=== PATIENT | female | born 1980 | race Hispanic/Latino ===

== ENCOUNTER 2022-01-06 10:42 | Emergency (ER) | payer BC, OTHER ==
[~2022-01-06] VITALS: Ht 152.4 cm; Wt 83.0 kg
[2022-01-06] MEDS ORDERED: KETOROLAC TROMETHAMINE 30 MG/ML VIAL IV STA (11:06)
[2022-01-06] MEDS ORDERED: SODIUM CHLORIDE 0.9% 1000ML 1,000 ML IV ONE (11:15)
[2022-01-06] MEDS ORDERED: ONDANSETRON HCL INJ 2MG/ML 2ML 2 MG/ML VIAL IV PRN (11:15)
[2022-01-06 11:31] LABS: BASOPHILS % 0.5 % (0.0-1.0); EOSINOPHILS # (AUTO) 0.1 (0.0-0.4); EOSINOPHILS % 2.3 % (0.0-6.0); HEMOGLOBIN 11.1 g/dL (12.0-16.0); LYMPHOCYTES # (AUTO) 2.2 (1.0-3.2); LYMPHOCYTES % 40.1 % (18.0-39.1); MEAN CORPUSCULAR VOLUME 80.1 fL (81-99); MONOCYTES # (AUTO) 0.5 (0.2-0.8); MONOCYTES % 8.1 % (4.4-11.3); NEUTROPHILS # (AUTO) 2.7 (2.1-6.9); NEUTROPHILS % 48.3 % (38.7-80.0); PLATELET COUNT 267 x10e3/uL (140-360); RED BLOOD COUNT 4.62 x10e6/uL (3.6-5.1); RED CELL DISTRIBUTION WIDTH 15.9 % (11.7-14.4)
[2022-01-06 11:49] LABS: CLARITY,URINE CLEAR (CLEAR); COLOR,URINE YELLOW (YELLOW); KETONES,URINE NEGATIVE (NEGATIVE); LEUKOCYTE ESTERASE ,URINE NEGATIVE (NEGATIVE); NITRITE,URINE NEGATIVE (NEGATIVE); PROTEIN,URINE DIPSTICK NEGATIVE (NEGATIVE); URINE UROBILINOGEN 0.2 mg/dL (0.2 - 1)
[2022-01-06 11:52] LABS: ALBUMIN 3.2 g/dL (3.5-5.0); ANION GAP 14.5 mmol/L (8-16); CALCIUM 8.8 mg/dL (8.4-10.2); CREATININE, SERUM 0.79 mg/dL (0.57-1.11); LIPASE 41 U/L (8-78); POTASSIUM 3.5 mmol/L (3.5-5.1)
[2022-01-06 12:04] LABS: RBC,URINE 0-5 /HPF (0-5)
[2022-01-06 12:05] LABS: BACTERIA,URINE FEW /HPF
[2022-01-06 12:06] LABS: EPITHELIAL CELLS,URINE MODERATE /LPF
[2022-01-06] MEDS ORDERED: DICYCLOMINE HCL20 MG PO (12:44)
[2022-01-06] MEDS ORDERED: ONDANSETRON ODT4 MG PO (12:44)
[2022-01-06] MEDS ORDERED: IBUPROFEN600 MG PO (12:44)
[2022-01-06] MEDS ORDERED: CARAFATE1 GM/10 ML PO (12:55)
== END 2022-01-06 13:05 | disposition home or self-care (01) ==
LOC: ER 11:17
DX: R10.31 Right lower quadrant pain (principal); R11.0 Nausea
CPT/HCPCS: 36415; 74176; 80053; 81001; 83690; 84702; 85025; 99284; J1885; J2405; J7030